=== PATIENT | female | born 1995 | race Caucasian/White ===

== ENCOUNTER 2018-02-21 12:21 | Inpatient (IN) | payer MEDICAID ==
[2018-02-21] MEDS ORDERED: OXYTOCIN 30 UNITS/LR 500 ML IV ×2 (13:30→21:30)
[2018-02-21] MEDS ORDERED: METHYLERGONOVINE 0.2 MG INJ IM ×2 (13:30→21:30)
[2018-02-21] MEDS ORDERED: CARBOPROST 250 MCG INJ IM ×2 (13:30→21:30)
[2018-02-21] MEDS ORDERED: MINERAL OIL LIGHT 10 ML VIAL TOP (13:30)
[2018-02-21] MEDS ORDERED: IBUPROFEN 600 MG TAB PO (13:30)
[2018-02-21] MEDS ORDERED: BUTORPHANOL 2 MG INJ IV (13:30)
[2018-02-21] MEDS ORDERED: MISOPROSTOL 200 MCG TAB PR ×2 (13:30→21:30)
[2018-02-21 13:49] LABS: RUPTURE FETAL MEMBRANES POSITIVE (NEGATIVE)
[2018-02-21] MEDS: LACTATED RINGER'S 1,000 ML IV (13:50)
[2018-02-21] MEDS: AMPICILLIN 2 GM/NS (PMX) 100 ML IV (13:54)
[2018-02-21 14:16] LABS: ADD MAN DIFF? NO
[2018-02-21 14:20] LABS: BASOPHILS % 0.3 % (0.0-2.0); EOSINOPHILS # 0.1 10^3/ul (0.0-0.5); EOSINOPHILS % 0.4 % (0.0-7.0); HEMATOCRIT 36.6 % (37.0-47.0); HEMOGLOBIN 11.2 g/dl (12.0-16.0); LYMPHOCYTES # 1.5 10^3/ul (0.8-2.9); LYMPHOCYTES % 12.1 % (15.0-51.0); MEAN CORPUSCULAR HEMOGLOBIN 22.8 pg (29.0-33.0); MEAN CORPUSCULAR HGB CONC 30.6 g/dl (32.0-37.0); MEAN CORPUSCULAR VOLUME 74.4 fl (82.0-101.0); MEAN PLATELET VOLUME 12.2 fl (7.4-10.4); MONOCYTE # 0.5 10^3/ul (0.3-0.9); MONOCYTES % 4.3 % (0.0-11.0); NEUTROPHIL # 9.9 10^3/ul (1.6-7.5); NEUTROPHILS % 82.3 % (39.0-77.0); PLATELET COUNT 351 10^3/UL (140-415); RED BLOOD COUNT 4.92 10^6/ul (4.20-5.40); RED CELL DISTRIBUTION WIDTH 15.4 % (11.5-14.5)
[2018-02-21 14:44] LABS: INR 0.86; PARTIAL THROMBOPLASTIN TIME 28.7 Sec (25.0-35.0); PROTIME 11.8 Sec (11.9-14.9); PT RATIO 0.9
[2018-02-21 15:19] LABS: HEPATITIS B SURFACE ANTIGEN NEGATIVE (NEGATIVE)
[2018-02-21 15:21] LABS: RAPID PLASMA REAGIN NONREACTIVE (NR)
[2018-02-21] MEDS: LIDOCAINE 1% (MPF) 30 ML INJ INJ (17:13)
[2018-02-21] MEDS: OXYTOCIN 30 UNITS/LR 500 ML IV ×2 (17:15→17:35)
[2018-02-21] MEDS: AMPICILLIN 1 GM/NS (PMX) 50 ML IV (19:28)
[2018-02-21] MEDS ORDERED: HYDROCODONE/APAP (5/325) TAB PO ×2 (21:30)
[2018-02-21] MEDS ORDERED: ZOLPIDEM 5 MG TAB PO (21:30)
[2018-02-21] MEDS: LACTATED RINGER'S 1,000 ML IV* (22:19)
[2018-02-21] MEDS: DIBUCAINE 1% 30 GM OINT PR (22:19)
[2018-02-21] MEDS: LANOLIN 7 GM TUBE TOP (22:20)
[2018-02-21] MEDS: WITCH HAZEL/GLYCERIN PAD PR (22:20)
[2018-02-21] MEDS: BENZOCAINE 20% 56 ML SPRAY TOP (22:20)
[2018-02-21] MEDS: IBUPROFEN 600 MG TAB PO (23:42)
[2018-02-22] MEDS: LACTATED RINGER'S 1,000 ML IV* ×2 (05:24→13:24)
[2018-02-22] MEDS: IBUPROFEN 600 MG TAB PO ×3 (05:43→17:24)
[2018-02-22] MEDS: MAGNESIUM HYDROXIDE 30ML CUP PO (09:30)
[2018-02-22] MEDS: SENNA/DOCUSATE NA (8.6MG/50MG) TAB PO (09:30)
[2018-02-22 11:19] LABS: ADD MAN DIFF? NO
[2018-02-22 11:24] LABS: BASOPHILS % 0.3 % (0.0-2.0); EOSINOPHILS % 0.3 % (0.0-7.0); HEMATOCRIT 28.2 % (37.0-47.0); HEMOGLOBIN 8.7 g/dl (12.0-16.0); LYMPHOCYTES # 1.9 10^3/ul (0.8-2.9); LYMPHOCYTES % 15.5 % (15.0-51.0); MEAN CORPUSCULAR HEMOGLOBIN 22.8 pg (29.0-33.0); MEAN CORPUSCULAR HGB CONC 30.9 g/dl (32.0-37.0); MEAN CORPUSCULAR VOLUME 73.8 fl (82.0-101.0); MEAN PLATELET VOLUME 11.7 fl (7.4-10.4); MONOCYTE # 0.5 10^3/ul (0.3-0.9); MONOCYTES % 4.2 % (0.0-11.0); NEUTROPHIL # 9.4 10^3/ul (1.6-7.5); NEUTROPHILS % 79.2 % (39.0-77.0); PLATELET COUNT 267 10^3/UL (140-415); RED BLOOD COUNT 3.82 10^6/ul (4.20-5.40); RED CELL DISTRIBUTION WIDTH 15.3 % (11.5-14.5)
[2018-02-22 11:24] LABS: WHITE BLOOD COUNT 11.9 10^3/ul (4.8-10.8)
[2018-02-22] MEDS ORDERED: VITAMIN A & D 5 GM OINT PACKET TOP (19:22)
[2018-02-23] MEDS: IBUPROFEN 600 MG TAB PO ×3 (00:06→11:51)
[2018-02-23] MEDS: MAGNESIUM HYDROXIDE 30ML CUP PO ×2 (00:06→09:00)
[2018-02-23] MEDS: SENNA/DOCUSATE NA (8.6MG/50MG) TAB PO ×2 (00:06→09:00)
[2018-02-23] MEDS: LACTATED RINGER'S 1,000 ML IV* (06:02)
[2018-02-23] MEDS: MEASLES,MUMPS,RUBELLA VACCINE INJ SC* (09:00)
[2018-02-23] MEDS: VARICELLA VACCINE LIVE/PF 1,350 UNIT/0.5 ML ML SC* (09:00)
[2018-02-23] MEDS: DIPHTH/TET/ACEL PERTUSS (ADULT) 0.5 ML VIAL IM* (09:00)
== END 2018-02-23 17:23 | disposition home or self-care (01) | DRG 775 ==
LOC: OBT 12:21 → L-D 12:23 → OBT 13:26 → L-D 13:15 → PP1 20:07
PROVIDERS: Obstetrics & Gynecology
PROC: 10E0XZZ Delivery of Products of Conception, External Approach (ICD-10-PCS; principal; 2018-02-21)
PROC: 0KQM0ZZ Repair Perineum Muscle, Open Approach (ICD-10-PCS; 2018-02-21)
PROC: 3E033VJ Introduction of Other Hormone into Peripheral Vein, Percutaneous Approach (ICD-10-PCS; 2018-02-21)
DX: O70.1 Second degree perineal laceration during delivery (principal); Z37.0 Single live birth; Z3A.38 38 weeks gestation of pregnancy
CPT/HCPCS: 84112; 85025; 85610; 85730; 86592; 86900; 86901; 87340; 99464